=== PATIENT | male | born 1955 | race Caucasian/White ===

== ENCOUNTER 2021-12-07 09:07 | Outpatient (CLI) | payer OTHER | END 2021-12-07 09:08 | disposition home or self-care (01) | LOC: SCSRAD 09:07 | PROVIDERS: ATTEND Family Medicine | DX: G56.21 Lesion of ulnar nerve, right upper limb (principal); M47.812 Spondylosis without myelopathy or radiculopathy, cervical region | CPT/HCPCS: 72050 ==

== ENCOUNTER 2022-02-02 07:52 | Outpatient (CLI) | payer OTHER ==
[2022-02-02 10:39] LABS: #Eosinphils 0.2 10x3/uL (0.0-0.5); #Monocytes 0.5 10x3/uL (0.0-1.1); #Neutrophils 2.9 10x3/uL (1.5-8.4); %Basophils 0.8 % (0.0-2.0); %Eosinophils 3.2 % (0.0-6.0); %Lymphocytes 25.6 % (18.0-47.0); %Monocytes 10.9 % (0.0-10.0); %Neutrophils 59.1 % (40.0-75.0); Hemoglobin 13.5 g/dL (13.5-17.5); Mean Corpuscular HGB CONC 34.4 g/dL (32.0-36.0); Mean Corpuscular Hemoglobin 33.1 pg (27.0-33.0); Mean Corpuscular Volume 96.1 fl (81.2-95.1); Mean Platelet Volume 11.8 fl (7.4-10.4); Platelet Count 230 10x3/uL (150-450); RBC Distribution Width 12.3 % (11.5-14.5); Red Blood Cell (RBC) Count 4.08 10x6/uL (4.32-5.72)
== END 2022-02-02 07:53 | disposition home or self-care (01) ==
LOC: LABBT 07:52
PROVIDERS: ATTEND Orthopaedic Surgery Hand Surgery
DX: Z01.818 Encounter for other preprocedural examination (principal); G56.01 Carpal tunnel syndrome, right upper limb; G56.21 Lesion of ulnar nerve, right upper limb; Z20.822 Contact with and (suspected) exposure to COVID-19
CPT/HCPCS: 85025; 87811; 93005; 93010

== ENCOUNTER 2022-02-06 06:36 | Day surgery (SDC) | payer OTHER ==
[2022-02-02 14:18] VITALS: BMI 29.1
[2022-02-06] MEDS ORDERED: Betamet Acet/Betamet Na Ph 30 MG/5 ML VIAL ONE (06:46)
[2022-02-06] MEDS ORDERED: Bacitracin Zinc Ointment 30 gm TUBE ONE (06:46)
[2022-02-06] MEDS ORDERED: Neomycin-Polymyxin 1 ML AMP ONE (06:46)
[2022-02-06] MEDS ORDERED: Bupivacaine PF 0.5% 30 ML VIAL ONE (06:46)
[2022-02-06] MEDS ORDERED: Midazolam HCl 2 mg/2 ml Vial ONE (07:35)
[2022-02-06] MEDS ORDERED: fentaNYL Citrate/PF 100 MCG/2 ML SYRINGE ONE (07:36)
[2022-02-06] MEDS ORDERED: CEFAZOLIN 2 GM VIAL ONE (07:40)
[2022-02-06] MEDS ORDERED: Sodium Chloride 0.9% 100 ML ONE (07:40)
[2022-02-06] MEDS ORDERED: PROPOFOL 200 MG/20 ML VIAL ONE (07:52)
[2022-02-06] MEDS ORDERED: Lidocaine 1% MPF 2 ML VIAL ONE (07:52)
[2022-02-06] MEDS ORDERED: ePHEDrine 50 MG/ML VIAL ONE (07:52)
[2022-02-06] MEDS ORDERED: Dexamethasone 20 MG/5 ML VIAL ONE (07:52)
[2022-02-06] MEDS ORDERED: Ondansetron PF 4 MG/2 ML Vial ONE (07:52)
[2022-02-06] MEDS ORDERED: Ketorolac Tromethamine 30 MG/ML VIAL ONE ×2 (07:52→10:59)
== END 2022-02-06 12:30 | disposition home or self-care (01) ==
LOC: SDC 06:36
PROVIDERS: ATTEND Orthopaedic Surgery Hand Surgery
PROC: 01N40ZZ Release Ulnar Nerve, Open Approach (ICD-10-PCS; principal; 2022-02-06)
PROC: 01N50ZZ Release Median Nerve, Open Approach (ICD-10-PCS; principal; 2022-02-06)
DX: G56.01 Carpal tunnel syndrome, right upper limb (principal); G56.21 Lesion of ulnar nerve, right upper limb; M19.021 Primary osteoarthritis, right elbow; I10 Essential (primary) hypertension; E78.00 Pure hypercholesterolemia, unspecified; M10.9 Gout, unspecified; Z87.891 Personal history of nicotine dependence; Z79.899 Other long term (current) drug therapy
CPT/HCPCS: C1713; J0690; J0702; J1100; J1885; J2250; J2405; J2704; J3490; S0020